=== PATIENT | male | born 1995 | race Caucasian/White ===

== ENCOUNTER 2021-09-18 22:24 | Emergency (ER) | payer OTHER ==
[2021-09-18 22:49] LABS: Basophils # (A) 0.1 k/uL (0-0.2); Basophils % (A) 1 %; Eosinophils # (A) 0.1 k/uL (0-0.7); Eosinophils % (A) 1 %; HGB 16.1 gm/dL (13.0-17.5); Lymphocytes # (A) 3.4 k/uL (1.0-4.8); Lymphocytes % (A) 39 %; MCHC 32.9 g/dL (31.0-37.0); MCV 97.2 fL (80.0-100.0); Mean Platelet Volume 7.3; Monocytes # (A) 0.3 k/uL (0-1.0); Monocytes % (A) 4 %; Neutrophils # (A) 4.7 k/uL (1.3-7.7); Neutrophils % (A) 54 %; Platelet Count 241 k/uL (150-450); RBC 5.04 m/uL (4.30-5.90); RDW 13.6 % (11.5-15.5); WBC 8.7 k/uL (3.8-10.6)
[2021-09-18 23:03] LABS: INR 1.2 (<1.2); Partial Thromboplastin Time 27.7 sec (22.0-30.0); Prothrombin Time 12.5 sec (9.0-12.0)
[2021-09-18 23:05] LABS: Albumin 4.9 g/dL (3.5-5.0); Calcium 9.2 mg/dL (8.4-10.2); Potassium 3.9 mmol/L (3.5-5.1); Total Bilirubin 0.8 mg/dL (0.2-1.3); Total Protein 7.7 g/dL (6.3-8.2)
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
--- NOTE | 2021-09-18 23:28 | XR ---
EXAMINATION TYPE: XR chest 1V portable DATE OF EXAM: 09/18/2021 COMPARISON: NONE HISTORY: Respiratory failure TECHNIQUE: Single view FINDINGS: Endotracheal tube is 1.5 cm from the santi. Heart size is fairly normal. There is some mil d infiltrate and atelectasis left lower lobe. There are no hilar masses. Costophrenic angles are itz r. There are chest leads. Bony thorax is intact. IMPRESSION: Mild infiltrate and atelectasis left lower lobe. Normal heart.
[2021-09-18] MEDS ORDERED: DIPH,PERTUS(ACELL)TETVAC-LF 0.5 ML VIAL IM ONE (23:29)
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
[2021-09-18 23:44] VITALS: BP 141/96; PULSE 75; RESP 16; TEMP 97.7
[2021-09-19 00:09] LABS: Appearance,Urine Clear (Clear); Bilirubin,Urine Negative (Negative); Blood,Urine Negative (Negative); Color,Urine Colorless; Glucose,Urine (UA) Negative (Negative); Ketones,Urine Negative (Negative); Leukocyte Esterase,Urine Negative (Negative); Nitrite,Urine Negative (Negative); PH, Urine 5.5 (5.0-8.0); Protein,Urine Negative (Negative); Specific Gravity,Urine 1.005 (1.001-1.035); Urobilinogen,Urine <2.0 mg/dL (<2.0)
[2021-09-19 00:20] LABS: Amphetamine Screen,Urine Not Detected (NotDetected); Barbiturate Screen,Urine Not Detected (NotDetected); Benzodiazepines Screen,Urine Not Detected (NotDetected); Cocaine Screen,Urine Not Detected (NotDetected); Methadone Screen, Urine Not Detected (NotDetected); Opiate Screen,Urine Detected (NotDetected); Oxycodone Screen, Urine Not Detected (NotDetected); Phencyclidine Screen,Urine Not Detected (NotDetected); Tricyclic Antidepressant,Urine Not Detected (NotDetected); Urn Cannabinoid Scrn Detected (NotDetected)
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
[2021-09-19] MEDS ORDERED: ETOMIDATE 2 MG/ML 10 ML VIAL IVP STA (01:06)
[2021-09-19] MEDS ORDERED: MIDAZOLAM 1 MG/ML 5 ML VIAL IV STA (01:07)
[2021-09-19] MEDS ORDERED: ROCURONIUM 10 MG/ML (5 ML VIAL) IV STA (01:07)
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
== END 2021-09-19 00:35 | disposition other institution (70) ==
LOC: EDBD → SUPCPDRO 22:24 → EC 22:24
DX: S10.81XA Abrasion of other specified part of neck, initial encounter (principal); F10.129 Alcohol abuse with intoxication, unspecified; Y90.9 Presence of alcohol in blood, level not specified; X58.XXXA Exposure to other specified factors, initial encounter
CPT/HCPCS: 99291; 90471; 31500; 36415; 94002; 93005; 86900; 86901; 80053; 84484; 85025; 85610; 85730; 86850; 81003; 80306; 80320; 87635; 71045; 72125; 70486; 70450; 71260; 70498; 74177; 90715; L0120; J0690; J2250; J2704; Q9967 ×2

== ENCOUNTER 2021-10-12 19:36 | Emergency (ER) | payer BC ==
[2021-10-12 19:44] VITALS: TEMP 98.3
[2021-10-12] MEDS ORDERED: ONDANSETRON 4 MG/2 ML VIAL IVP STA (19:55)
[2021-10-12] MEDS ORDERED: SODIUM CHLORIDE 0.9% 1,000 ML IV STA (19:55)
[2021-10-12] MEDS ORDERED: SODIUM CHLORIDE 0.9% 500 ML 500 ML IV STA (19:57)
--- NOTE | 2021-10-12 20:22 | ED ---
Back Pain HPI - General Chief Complaint: Back Pain/Injury Stated Complaint: kidney stone Time Seen by Provider: 10/12/21 19:50 Source: patient, RN notes reviewed Limitations: no limitations - History of Present Illness Initial Comments: This is a 26 year old male with a PMHx of kidney stones who presents to the emergency department for right flank pain and dysuria. States that last week he had intermittent right flank pain that resolved for a few days, and then returned 2-3 days ago. He reports associated dysuria and denies hematuria. The flank pain comes in waves, and just prior to coming to the emergency department, patient states that the pain made him want to scream. He also has associated nausea and vomiting and has not been able to keep down any food or drink for the last 3 days. Denies any fevers or chills. Patient has no concern for STIs and denies any recent intercourse. Onset/Timin -: days(s) Similar Symptoms Previously: Yes - Related Data Home Medications Medication Instructions Recorded Confirmed Escitalopram [Lexapro] 10 mg PO HS 10/12/21 10/12/21 OLANZapine 5 mg PO HS 10/12/21 10/12/21 traZODone HCL 150 mg PO HS 10/12/21 10/12/21 Previous Rx's Medication Instructions Recorded Meloxicam [Mobic] 7.5 mg PO DAILY #30 tab 10/12/21 Ondansetron Odt [Zofran Odt] 4 mg PO Q8HR PRN #30 tab 10/12/21 Tamsulosin HCl [Flomax] 0.4 mg PO QAM #20 capsule 10/12/21 Allergies Allergy/AdvReac Type Severity Reaction Status Date / Time doxycycline Allergy Rash/Hives Verified 10/12/21 22:26 Review of Systems ROS Statement: Those systems with pertinent positive or pertinent negative responses have been documented in the HPI. ROS Other: All systems not noted in ROS Statement are negative. Constitutional: Denies: fever, chills, night sweats Respiratory: Denies: cough, dyspnea Cardiovascular: Denies: chest pain, palpitations Gastrointestinal: Reports: nausea, vomiting. Denies: abdominal pain, diarrhea, constipation Genitourinary: Reports: dysuria. Denies: urgency, frequency, hematuria, discharge Musculoskeletal: Reports: back pain (right flank) Skin: Denies: rash, lesions Past Medical History Past Medical History: No Reported History History of Any Multi-Drug Resistant Organisms: Unobtainable Past Surgical History: No Surgical Hx Reported Past Psychological History: Anxiety, Depression, Schizophrenia Smoking Status: Current every day smoker Past Alcohol Use History: Occasional Past Drug Use History: None Reported General Exam Limitations: no limitations General appearance: alert, in no apparent distress Head exam: Present: atraumatic, normocephalic, normal inspection Respiratory exam: Present: normal lung sounds bilaterally. Absent: respiratory distress, wheezes, rales, rhonchi, stridor Cardiovascular Exam: Present: regular rate, normal rhythm, normal heart sounds. Absent: systolic murmur, diastolic murmur, rubs, gallop, clicks GI/Abdominal exam: Present: soft, normal bowel sounds. Absent: distended, tenderness, guarding, rebound, rigid Back exam: Present: CVA tenderness (R). Absent: CVA tenderness (L) Neurological exam: Present: alert, oriented X3, CN II-XII intact Psychiatric exam: Present: normal affect, normal mood Skin exam: Present: warm, dry, intact, normal color. Absent: rash Course Vital Signs 10/12/21 10/12/21 19:41 22:26 Temperature 98.3 F Pulse Rate 83 64 Respiratory 18 16 Rate Blood Pressure 148/113 140/92 O2 Sat by Pulse 97 98 Oximetry Medical Decision Making - Medical Decision Making This is a 26 year old male who presents to the emergency department with right flank pain. Patient has a known history of kidney stones and CVA tenderness was present on exam. CT scan obtained, revealing an obstructing calculus at the right ureterovesicular junction with subsequent hydronephrosis and hydroureter. Pain was well controlled with Toradol and nausea controlled with Zofran. Radiology was contacted regarding the size of the kidney stone, however a response was not obtained at the time of patient's discharge. In consultation with ED attending, Dr. Molina, the measurement tool was used on the CT scan image, approximating the stone at 3mm. Patient given a urine strainer and a starter pack for Tylenol #3. Rx for meloxicam sent to his pharmacy. Instructed him to avoid taking this with motrin or other antiinflammatories. Rx for Flomax and Zofran provided as well. Referral placed to urology given recurrent kidney stones. Return precautions reviewed in depth, the patient is instructed to return to the emergency department if symptoms worsen, including but not limited to, the development of fevers or worsening pain. Patient verbalized understanding. This case was discussed in detail with the attending ED physician. Presentation, findings, and treatment plan discussed in detail as well. - Lab Data Result diagrams: 10/12/21 20:16 10/12/21 20:16 Lab Results 10/12/21 10/12/21 10/12/21 Range/Units 20:16 20:16 20:33 WBC 5.8 (3.8-10.6) k/uL RBC 4.65 (4.30-5.90) m/uL Hgb 14.8 (13.0-17.5) gm/dL Hct 43.3 (39.0-53.0) % MCV 93.2 (80.0-100.0) fL MCH 31.9 (25.0-35.0) pg MCHC 34.2 (31.0-37.0) g/dL RDW 13.5 (11.5-15.5) % Plt Count 255 (150-450) k/uL MPV 7.0 Neutrophils % 71 % Lymphocytes % 21 % Monocytes % 5 % Eosinophils % 1 % Basophils % 1 % Neutrophils # 4.1 (1.3-7.7) k/uL Lymphocytes # 1.2 (1.0-4.8) k/uL Monocytes # 0.3 (0-1.0) k/uL Eosinophils # 0.1 (0-0.7) k/uL Basophils # 0.0 (0-0.2) k/uL Sodium 136 L (137-145) mmol/L Potassium 3.6 (3.5-5.1) mmol/L Chloride 104 (98-107) mmol/L Carbon Dioxide 23 (22-30) mmol/L Anion Gap 9 mmol/L BUN 12 (9-20) mg/dL Creatinine 1.00 (0.66-1.25) mg/dL Est GFR (CKD-EPI)AfAm >90 (>60 ml/min/1.73 sqM) Est GFR (CKD-EPI)NonAf >90 (>60 ml/min/1.73 sqM) Glucose 103 H (74-99) mg/dL Calcium 9.1 (8.4-10.2) mg/dL Total Bilirubin 1.3 (0.2-1.3) mg/dL AST 107 H (17-59) U/L ALT 147 H (4-49) U/L Alkaline Phosphatase 73 (38-126) U/L Total Protein 7.0 (6.3-8.2) g/dL Albumin 4.4 (3.5-5.0) g/dL Urine Color Yellow Urine Appearance Clear (Clear) Urine pH 7.0 (5.0-8.0) Ur Specific [place] 1.034 (1.001-1.035) Urine Protein 1+ H (Negative) Urine Glucose (UA) Negative (Negative) Urine Ketones Trace H (Negative) Urine Blood Negative (Negative) Urine Nitrite Negative (Negative) Urine Bilirubin Negative (Negative) Urine Urobilinogen 6.0 (<2.0) mg/dL Ur Leukocyte Esterase Negative (Negative) Urine RBC 4 (0-5) /hpf Urine WBC <1 (0-5) /hpf Urine Mucus Occasional H (None) /hpf Disposition Clinical Impression: Hydronephrosis due to obstruction of ureter, Ureteral calculus, left Disposition: HOME SELF-CARE Instructions (If sedation given, give patient instructions): Kidney Stones (ED), Renal Colic (ED), How to Strain Your Urine (ED) Additional Instructions: Return to the emergency department if symptoms worsen. Make an appointment with urology for further evaluation and management of symptoms. Drink plenty of fluids. Prescriptions: Tamsulosin HCl [Flomax] 0.4 mg PO QAM #20 capsule Meloxicam [Mobic] 7.5 mg PO DAILY #30 tab Ondansetron Odt [Zofran Odt] 4 mg PO Q8HR PRN #30 tab PRN Reason: Nausea And Vomiting Is patient prescribed a controlled substance at d/c from ED?: No Referrals: Alfonso Broussard DO [Primary Care Provider] - 1-2 days Pawel Barrett MD [STAFF PHYSICIAN] - 1-2 days
[2021-10-12 20:26] LABS: Basophils % (A) 1 %; Eosinophils # (A) 0.1 k/uL (0-0.7); Eosinophils % (A) 1 %; HCT 43.3 % (39.0-53.0); HGB 14.8 gm/dL (13.0-17.5); Lymphocytes # (A) 1.2 k/uL (1.0-4.8); Lymphocytes % (A) 21 %; MCH 31.9 pg (25.0-35.0); MCHC 34.2 g/dL (31.0-37.0); MCV 93.2 fL (80.0-100.0); Monocytes # (A) 0.3 k/uL (0-1.0); Monocytes % (A) 5 %; Neutrophils # (A) 4.1 k/uL (1.3-7.7); Neutrophils % (A) 71 %; Platelet Count 255 k/uL (150-450); RBC 4.65 m/uL (4.30-5.90); RDW 13.5 % (11.5-15.5); WBC 5.8 k/uL (3.8-10.6)
[2021-10-12 20:36] LABS: ALT 147 U/L (4-49); AST 107 U/L (17-59); African American GFR (CKD) >90 (>60 ml/min/1.73 sqM); Albumin 4.4 g/dL (3.5-5.0); Alkaline Phosphatase 73 U/L (38-126); Anion Gap 9 mmol/L; Blood Urea Nitrogen 12 mg/dL (9-20); Calcium 9.1 mg/dL (8.4-10.2); Carbon Dioxide 23 mmol/L (22-30); Chloride 104 mmol/L (98-107); Glucose 103 mg/dL (74-99); Non-African American GFR(CKD) >90 (>60 ml/min/1.73 sqM); Potassium 3.6 mmol/L (3.5-5.1); Sodium 136 mmol/L (137-145); Total Bilirubin 1.3 mg/dL (0.2-1.3)
--- NOTE | 2021-10-12 20:56 | CT ---
EXAMINATION TYPE: CT abdomen pelvis wo con DATE OF EXAM: 10/12/2021 COMPARISON: 09/18/2021 HISTORY: Right flank pain CT DLP: mGycm Automated exposure control for dose reduction was used. Images obtained without contrast from the diaphragm to the floor the pelvis. Lung bases are clear. There is no pleural effusion. Heart size is normal. There is no pericardial eff usion. Liver spleen stomach pancreas and gallbladder appear intact. Bile ducts are not dilated. There is no adrenal mass. Kidneys have normal size. There is right-sided hydronephrosis and hydrouret er. Bladder distends smoothly. There is no inguinal hernia. There is no free fluid in the pelvis. Pia endix is normal in size. There is no free fluid in the pelvis. There is no evidence of a pelvic mass. There is no mesenteric edema. There is no ascites or free air. There is no bowel obstruction. There is 3 mm calcification in the pelvis on the right side consistent with distal right ureteral calculus. The lumbar vertebrae have normal alignment. Posterior element are intact. There is no compression fra cture. Bony pelvis is intact. The hip joints are intact. IMPRESSION: Obstructing calculus at the right ureterovesical junction with hydronephrosis and hydroureter. Obstru ction appears new compared to old exam. Normal appendix.
[2021-10-12 21:00] LABS: Appearance,Urine Clear (Clear); Bilirubin,Urine Negative (Negative); Blood,Urine Negative (Negative); Color,Urine Yellow; Glucose,Urine (UA) Negative (Negative); Ketones,Urine Trace (Negative); Leukocyte Esterase,Urine Negative (Negative); Mucus,Urine Occasional /hpf; Nitrite,Urine Negative (Negative); Protein,Urine 1+ (Negative); RBC,Urine 4 /hpf (0-5); Specific Gravity,Urine 1.034 (1.001-1.035); WBC,Urine <1 /hpf (0-5)
[2021-10-12] MEDS ORDERED: KETOROLAC 15 MG/ML 1 ML VIAL IVP STA (21:13)
[2021-10-12 22:27] VITALS: BP 140/92; PULSE 64; RESP 16
[2021-10-12] MEDS ORDERED: ACET/COD 300 MG/30 MG STARTER PACK 6 TAB BTL PO STA (22:56)
== END 2021-10-12 23:14 | disposition home or self-care (01) ==
LOC: EC 19:36
DX: N13.2 Hydronephrosis with renal and ureteral calculous obstruction (principal); F32.A Depression, unspecified; F41.9 Anxiety disorder, unspecified; F20.9 Schizophrenia, unspecified; F17.200 Nicotine dependence, unspecified, uncomplicated; Z79.899 Other long term (current) drug therapy
CPT/HCPCS: 36415; 80053; 85025; 81001; 74176; 99284; 96374; 96375; 96361 ×3; J2405; J1885